=== PATIENT | female | born 1950 | race Caucasian/White ===

== ENCOUNTER 2017-04-08 08:46 | Inpatient (IN) | payer MEDICARE, OTHER ==
[~2017-04-08] VITALS: Ht 149.9 cm; Wt 71.8 kg
[2017-04-08] VITALS (13 sets, daily range): BP systolic 100–137; BP diastolic 45–89; PULSE 73–101; RESP 17–20; O2SAT 93–99
[~2017-04-08 08:46] MED LIST: ASPI-973 PO; ATOR20TA PO; Bupivacaine Liposome 1.3% 20 mL Inj INFILTRATE SCH; CALC600T12 PO; CHLO100T7 PO; CYA1000I IM; CeFAZolin Inj 2 GM in IV Premix 1 EACH IV SCH; DONE10TA42 PO; FOLI1TAB18 PO; FUR20 PO; MELA3TAB35 PO; MEMA10TA20 PO; MULT-1073 PO; NAPR500T PO; OMEP20TA86 PO; OXYB5TAB10 PO; VENL75TA3 PO
[2017-04-08] MEDS: Lactated Ringer's 1,000 ML IV SCH ×4 (09:38→14:11)
[2017-04-08] MEDS ORDERED: DOCU-41 PO (09:48)
[2017-04-08] MEDS ORDERED: CALC625T83 PO (09:48)
[2017-04-08] MEDS ORDERED: Vancomycin 1,000mg/200 mL NS IV ONE (10:23)
[2017-04-08] MEDS ORDERED: Lactated Ringer's 500 ML IV PRN (10:26)
[2017-04-08] MEDS ORDERED: Lactated Ringer's 1,000 ML IV SCH (10:26)
--- NOTE | 2017-04-08 10:26 | PCM.HPANE ---
Patient Data Date of Service: April 08, 2017 ([id number]) Surgeon Admitting Provider: Attending Provider:Errol Bennett MD Primary Care Physician:Cherelle Salinas MD Other Provider:Luis Fernando Owens Anesthesia Reason for Visit Right Knee Arthritis Ht/WT & BMI Height (Feet): 4 Height (Inches): 11 Weight (Kilograms): 70.3 Body Mass Index 31.00 Allergies Coded Allergies: metoclopramide (Verified Allergy, Severe, 07/08/10) povidone (Verified Allergy, Severe, Blisters, 09/10/09) povidone-iodine (Verified Allergy, Unknown, 04/07/17) soap (Verified Allergy, Unknown, 04/07/17) Past Anesthesia History Anesthesia History: Denies:: Abnormal Airway, Anesthesia Reactions, Difficult Intubation, Fam Anesthesia Reaction, Fam Malignant Hypertherm, Malignant Hyperthermia Diabetes History Hx Diabetes?: No MRSA MRSA: No Medications Blood Thinner: Aspirin Home Meds Incl Beta Toma: No Reported Medications Calcium Polycarbophil (Fiber-Caps)625 Mg Tablet1 Tablet PO DAILY 04/08/17 Docusate Sodium (Colace)100 Mg Fphzbcx885 Mg PO BID Ref 0 04/08/17 Chlorophyllin Copper Complex (Nullo)100 Mg Dwtzwt678 Mg PO DAILY 04/07/17 Memantine HCl 10 Mg Kbqyfg30 Mg PO BID 04/07/17 Melatonin 3 Mg Tablet3 Mg PO HS 04/07/17 Furosemide 20 Mg Tab20 Mg PO DAILY 30 Days Ref 0 04/07/17 Naproxen (Naprosyn)500 Mg Xfqqks900 Mg PO BID PRN For Pain Ref 0 03/27/16 Venlafaxine 75 Mg Mnxwea49 Mg PO QPM Ref 0 03/27/16 Venlafaxine 75 Mg Adawhs827 Mg PO QAM Ref 0 03/27/16 Oxybutynin Chloride 5 Mg Tablet5 Mg PO BID Ref 0 03/27/16 Omeprazole 20 Mg Tablet.dr20 Mg PO BID Ref 0 03/27/16 Folic Acid 1 Mg Tablet1 Mg PO DAILY 30 Days 03/27/16 Donepezil 10 Mg Tpvdcl87 Mg PO HS Ref 0 03/27/16 Cyanocobalamin (Cyanocobalamin Injection)1,000 Mcg/1 Ml Vial1,000 Mcg IM Monthly 03/27/16 Multivits-Min/FA/Lycopene/Lut (Centrum Silver Tablet)1 Each Tablet1 Each PO DAILY 03/27/16 Calcium Carbonate (Calcium)600 Mg Ljuwwu451 Mg PO BID 03/27/16 Atorvastatin (Lipitor)20 Mg Pxbyeh16 Mg PO DAILY Ref 0 03/27/16 Aspirin 81 Mg Rdvohd30 Mg PO DAILY Ref 0 03/27/16 Discontinued Reported Medications Nitrofurantoin Monohyd/M-Cryst (MacroBid)100 Mg Ywokpqz606 Mg PO HS Ref 0 03/27/16 History History of ENT Problems?: No HEENT History: Denies:: Abnormal Airway Difficult Intubation Dysphagia Hearing Problem Denture Type: Full- Upper Partial- Lower Teeth Condition: Missing Teeth Hx of Heart Problems?: No Cardiovascular History: Denies:: AICD Atrial Fibrillation Chest Pain Hypertension (hyperlipidemia) Pacemaker Valvular Heart Disease Hx of Respiratory Problem?: Yes Respiratory History: Positive for:: Pneumonia Denies:: Asthma COPD Chest Surgery Cough Dyspnea Emphysema Hemoptysis Oxygen Administration Tuberculosis Use of C-PAP Machine Hx Neurologic Problems?: Yes Neurological History: Positive for:: Alzheimer's Disease Denies:: CVA Dementia (early onset alzheimers) Dizziness Headaches Parkinson's Disease (tardive dyskinesia) Seizures Hx of GI Problems?: Yes Hx of Problems?: Yes Genitourinary History: Positive for:: Urinary Tract Infection (on prophylactic abx) Denies:: HX of Hemodialysis Kidney Stones HX of Peritoneal Dialysis: No Female Hx: Denies:: Currently Pelvic Inflammatory Problems with Breasts? Skin History: Denies:: History Skin Disorders? Pressure Ulcers Hx Musculoskeletal Problems?: Yes Musculoskeletal History: Positive for:: Back Injury Musculoskeletal Trauma (right knee current admission problem) Osteoarthritis Denies:: Joint Replacement Hx of Psycho/Social Problems?: Yes Psycho Social History: Positive for:: Anxiety Hx Depression Denies:: Bipolar Disorder Suicide Attempt Hx Surgeries?: Yes (lap naresh, tubal, shoulder, zach, bladder suspension, removal neurfibromato) Hx Any Other Health Problems?: Yes Other History: Positive for:: Hospitalization (pneumonia) Denies:: Cancer Endocrine Disease Thyroid Disease History Blood Transfusions: Positive for:: Blood Transfusions Denies:: Blood Transfuse Reaction Hx Diabetes: No Hx Alcohol Use: NoHx Substance Use: No Smoking Status: Former Smoker Have You Smoked inLast 12 mo: No Stop/Bang CRYSTAL Risk Assessment: Low Risk, <3 Yes Risk Assessment Category Category 1A: Patient has history of documented sleep apnea, and HAS NOT received any narcotic, sedative or anesthesia administration during this stay. Category 1B: Patient has history of documented sleep apnea, and HAS received any narcotic , sedative or anesthesia administration during this stay Category 2: Patient has SUSPECTED Obstructive Sleep Apnea, and HAS received any narcotic , sedative or anesthesia administration during this stay. Category 3: Patient has SUSPECTED Obstructive Sleep Apnea and HAS NOT received narcotic, sedative or anesthesia administration during this stay. Category 4: Outpatient in Procedural Areas with known sleep apnea or who screen positive for High Risk via the STOP/BANG questionnaire. Exam Exam Vital Signs Vital Signs Date Time Temp Pulse Resp B/P Pulse Ox O2 Delivery O2 Flow Rate FiO2 04/08/17 09:30 36.2 93 18 136/78 93 Room Air General Appearance: Alert, Oriented X3, Cooperative HEENT/AIRWAY: MP 1 Lungs: Clear to Auscultation Heart: Exam Unremarkable Meds/Labs/Diagnostics Admission Meds Current Medications Lactated Ringer's (Lr) 1,000 ml @ 120 mls/hr Q8H20M IV Last administered on t 09:38; Start 04/08/17 at 05:00; Stop 04/08/17 at 13:19 Plan Impression Patient chart reviewed, patient interviewed and anesthestic plan with risks, benefits, and alternatives discussed, and informed consent obtained. NPO per Anesth. Guidelines: Yes ASA Physical Status: ASA2 Mod Systemic Disease Anesthetic Plan: Regional Block, SAB Bene/Risks/Altern/Consents: Yes HP Complete Prior to Induction: Yes Fransisco Kidd MD April 08, 2017 10:26
[2017-04-08] MEDS ORDERED: HYDROmorphone 1 mg/mL Inj IVPUSH PRN (10:30)
[2017-04-08] MEDS ORDERED: fentaNYL-PF 50 mCg/mL 2 mL Inj IVPUSH PRN (10:30)
[2017-04-08] MEDS ORDERED: EPHEDrine Sulfate 50 mg/mL Inj IVPUSH PRN (10:30)
[2017-04-08] MEDS ORDERED: Ondansetron 2 mg/mL 2 mL Inj IVPUSH PRN (10:30)
[2017-04-08] MEDS ORDERED: Phenylephrine 10,000 mCg/mL Inj IVPUSH PRN (10:30)
[2017-04-08] MEDS ORDERED: Dexamethasone 4 mg/mL Inj IVPUSH PRN (10:30)
[2017-04-08] MEDS ORDERED: Gentamicin 40 mg/mL 2 mL Inj IRRIGATION ONE (11:36)
[2017-04-08] MEDS ORDERED: Bupivacaine Liposome 1.3% 20 mL Inj INFILTRATE ONE (11:50)
[2017-04-08] MEDS ORDERED: Bupivacaine-MPF 0.25%/EPI 30 mL Inj INFILTRATE ONE (11:50)
[2017-04-08] MEDS ORDERED: Lactated Ringer's 1,000 ML IV ONE (12:02)
--- NOTE | 2017-04-08 12:27 | PCM.ANEP1 ---
Post Anesthesia PACU Phase 1 Assessment Vital Signs 111/45, 76, 98%, 12, 36.2 Vital Signs Date Time Temp Pulse Resp B/P Pulse Ox O2 Delivery O2 Flow Rate FiO2 04/08/17 09:30 36.2 93 18 136/78 93 Room Air Anesthetic Administered: SAB Level of Alertness: Awake, talking REDMAN's with Equal Strength: No Pain: Yes Nausea or Vomiting: No CV Function & Hydration Stable: Yes Airway Device: NONE Oxygen Delivery: Room Air Lungs: Clear to Auscultation Dermatome Level: T10 (Umbilicus) Summary UNEVENTFUL SAB PACU Phase 2 Assessment Complications: No Follow up Care: No Patient Instructions Provided: N/A Fransisco Kidd MD April 08, 2017 12:27
--- NOTE | 2017-04-08 12:37 | OP ---
[address] [address] OPERATIVE REPORT PATIENT: AMY LUJAN : 1950 MR#: [id number] ADMIT: 04/08/2017 JOB ID: [id number] DATE OF SURGERY: 04/08/2017 PREOPERATIVE DIAGNOSIS(ES): Advanced osteoarthritis, right knee. POSTOPERATIVE DIAGNOSIS(ES): Advanced osteoarthritis, right knee. PROCEDURE: Total knee arthroplasty,right knee. SURGEON: Errol Bennett MD BRIDGE CARPENTER: Karmen Wynn PA-C (assistant toddler teacher required due to the complexity of the operation). INDICATIONS: This woman has severe arthritis, symptoms uncontrolled by conservative treatment. She and her elect for knee arthroplasty. They understand the potential for risks and complications, which include but is not limited to infection, thromboembolic, neurovascular events, as well as potential for progressive arthritis as well as potential for implant failure. PROCEDURE IN DETAIL: The patient was prepped and draped in usual sterile fashion. An anteromedial approach made to the knee. Dissection carried down. The patella was subluxed laterally, cut transversely, sized to a 32. Drill holes were made. Pin protected with patellar protection plate. Drill holes placed in distal femur. A 5 degree valgus distal femoral cut was made. The 5 sizing block was chosen after 3 degrees external rotation was dialed in. Chamfer cuts and subsequent drill holes were made for the 5. The tibia was cut with the extramedullary tool. Bone fragments and meniscal tissue were all removed. It was sized to a C, provisionally fixed. Pressurized lavage was followed by pressurized cementation of the components. Excess cement was removed during the curing process. Cut margins injected with Exparel and Marcaine mix. The wounds irrigated with sterile irrigant. Deep Hemovac drain. Closure with deep 2-0 Quill, followed by a 2-0 Vicryl, 3-0, and a 4-0 intracuticular stitch. Sterile dressings applied. The patient returned to the recovery room in stable condition. She tolerated the procedure well. There were no complications.
[2017-04-08] MEDS ORDERED: Ondansetron 2 mg/mL 2 mL Inj ONE (13:38)
[2017-04-08] MEDS ORDERED: Propofol 10,000 mCg/mL 20 mL Inj ONE (13:38)
[2017-04-08] MEDS ORDERED: Phenylephrine/NS-PF 100 mCg/mL 5 mL Syringe IVPUSH ONE (13:38)
[2017-04-08] MEDS ORDERED: fentaNYL-PF 50 mCg/mL 2 mL Inj ONE (13:38)
[2017-04-08] MEDS ORDERED: LORazepam 0.5 mg Tablet PO PRN (13:55)
[2017-04-08] MEDS ORDERED: Sodium Biphos-Phos 133 mL Enema RECTAL PRN (13:55)
[2017-04-08] MEDS ORDERED: Senna-Docusate 8.6-50 mg Tablet PO PRN (13:55)
[2017-04-08] MEDS ORDERED: diphenhydrAMINE 25 mg Capsule PO PRN (13:55)
[2017-04-08] MEDS ORDERED: Magnesium Hydroxide 10 mL Oral Concentration PO PRN (13:55)
[2017-04-08] MEDS ORDERED: Vancomycin Dose per Pharmacist XX SCH (13:55)
[2017-04-08] MEDS ORDERED: Ondansetron 2 mg/mL 2 mL Inj IV PRN (13:55)
[2017-04-08] MEDS ORDERED: Alum-Mag Hydrox-Simeth 30 mL Suspension PO PRN (13:55)
--- NOTE | 2017-04-08 14:05 | DRSVH ---
PROCEDURE: X-RAY RIGHT KNEE, ONE OR TWO VIEWS ([id number]) INDICATIONS: post total knee TECHNIQUE: 2 views of the knee acquired. COMPARISON: [facility], [place]ALIO, XR KNEE ARTHRITIC SERIES RT, 03/25/2017, 12:28. FINDINGS: Bones: Patient is status post knee joint arthroplasty. Hardware components are in expected position s. Visualized bony structures are intact. Soft tissues: Overlying postoperative changes are noted. IMPRESSION: 1. Expected postsurgical changes status post right knee arthroplasty. Dictated by: Obey Busch M.D. on 04/08/2017 at 13:03 Approved by: Obey Busch M.D. on 04/08/2017 at 13:03
--- NOTE | 2017-04-08 14:30 | NUR ---
Post op Transfer from PACU via bed at 14:00. Report received from Anastasi[facility]. Pt alert with baseline dementia and memory loss. RA. R knee with bulky ezequiel wrap CDI and hemovac clamped. Toes pink and warm with cap refill <3 sec.
[2017-04-08] MEDS ORDERED: hydrOXYzine Inj 50 MG/1 mL SDV IM PRN (14:35)
[2017-04-08 14:36] LABS: COLOR,URINE YELLOW (YELLOW)
[2017-04-08 14:37] LABS: APPEARANCE,URINE SLIGHTLY CLOUDY (CLEAR,HAZY); OCCULT BLOOD,URINE TRACE (NEGATIVE); UROBILINOGEN,URINE NORMAL (NORMAL)
[2017-04-08] MEDS: Sodium Chloride LOK Flush 10 mL Syringe IV SCH (15:30)
[2017-04-08] MEDS: Ketorolac 15 mg/mL Inj IV SCH ×2 (15:30→21:23)
[2017-04-08] MEDS: CeFAZolin Inj 2 GM in IV Premix 1 EACH IV SCH (18:02)
[2017-04-08] MEDS ORDERED: Vancomycin Inj 1,000 MG in IV Premix 1 EACH IV ONE (19:00)
[2017-04-08] MEDS: Senna-Docusate 8.6-50 mg Tablet PO SCH (21:22)
[2017-04-09 00:27] VITALS: BP 120/67; PULSE 91; RESP 16; O2SAT 96
[2017-04-09] MEDS: Sodium Chloride LOK Flush 10 mL Syringe IV SCH ×3 (00:30→16:10)
[2017-04-09] MEDS: Ketorolac 15 mg/mL Inj IV SCH (02:41)
[2017-04-09] MEDS: CeFAZolin Inj 2 GM in IV Premix 1 EACH IV SCH (03:35)
--- NOTE | 2017-04-09 03:40 | NUR ---
Insomnia This evening patient has been pleasant and has denied any pain. At HS 3mg of melatonin was given as scheduled. Around 0145 patient asked for something else to help her sleep. 5mg Ambien given. Upon further reassessment patient is sleeping and appears comfortable. Will continue to monitor, and continue Q1 hour checks.
[2017-04-09 05:52] LABS: BASOPHILS % (AUTO) 0.1 % (0-3); EOSINOPHILS % (AUTO) 0.1 % (0-5); MONOCYTES % (AUTO) 10.1 % (4-12); Mean Corpuscular Hemoglobin 26.1 pg (27.0-35.0); Mean Corpuscular Volume 78.3 fL (81-100); NEUTROPHILS % (AUTO) 76.3 % (40-74); Platelet Count 208 bil/L (150-400)
--- NOTE | 2017-04-09 06:01 | PCM.PNORTH ---
Subjective Date of Service: April 09, 2017 Visit Information: Reason for Visit Right Knee Arthritis Surgery/Surgery Date R TKA 04/08/17 Post-Op Day # Date of Admission: April 08, 2017 at 13:37 Hospital Day # Subjective Found patient awake and alert this morning and supine in bed and well positioned. No complaints of pain at this time. Discussed performing with physical therapy and patient states she is anxious to go home tomorrow on postop day 2. She does state that she has a home which can take care of her and I have encouraged her to get up and walk with therapy as much as possible. Postop General: No Complaints, No Shortness of Breath, No Chest Pain, Good Appetite Pain Management: PO Objective Exam Objective Alert and oriented 3 and pleasant. Interoperative dressing clean dry and intact. Toe wiggle and sensation are intact at right lower extremity distally Calf and thigh are soft and nontender Carter is present and working Hemovac drain is present and working Vital Signs and I/O Vital Sign - Last Date Time Temp Pulse Resp B/P Pulse Ox O2 Delivery O2 Flow Rate FiO2 04/09/17 00:27 36.8 91 16 120/67 96 Room Air Intake and Output 04/08/17 04/08/17 04/09/17 Cumulative From/Thru 15:00 23:00 07:00 04/07/17 09:51 - 04/08/17 18:51 Intake Total 1460 ml 482 ml 1942 ml Output Total 120 ml 325 ml 445 ml Balance 1340 ml 157 ml 1497 ml Intake Oral 300 ml 300 ml IV Total 1460 ml 182 ml 1642 ml Output Urine Total 100 ml 325 ml 425 ml Estimated Blood Loss 20 ml 20 ml Lab & Micro Results Laboratory Tests Test 04/08/17 13:53 04/09/17 05:00 Urine Color Yellow (YELLOW) Urine Appearance Slightly cloudy Urine pH 6.0 (5.0-8.0) Urine Specific [place] 1.010 (1.003-1.035) Urine Protein Tracemg/dL (NEG,TRACE) Urine Glucose (UA) Negativemg/dL (NEGATIVE) Urine Ketones Negativemg/dL (NEGATIVE) Urine Occult Blood Trace (NEGATIVE) Urine Nitrite Positive (NEGATIVE) Urine Bilirubin Negative (NEGATIVE) Urine Urobilinogen Normalmg/dL (NORMAL) Urine Leukocyte Esterase Large (NEGATIVE) Urine RBC 0-2/hpf (0-2) Urine WBC >50/hpf (0-5) Urine Epithelial Cells Occasional/hpf (NONE-MOD) Urine Crystals None seen (NONE SEEN) Urine Bacteria Many/hpf (NONE-FEW) Urine Hyaline Casts None/lpf (NONE) Urine Granular Casts None seen (NONE SEEN) Urine Waxy Casts None seen (NONE SEEN) Urine Red Blood Cell Casts None seen (NONE SEEN) Urine White Blood Cell Casts None seen (NONE SEEN) Urine Mucus None seen (None Seen) Urine Trichomonas None seen (NONE SEEN) Urine Yeast None (NONE SEEN) Urinalysis Comment None Urine Culture Reflexed Indicated Microbiology 04/08/17 Urine Culture, Received Pending General Appearance: Alert, Oriented X3, Cooperative, No Acute Distress Extremities: No Compartment Syndrom Noted, Thigh & Calf Soft/Nontender Postop Sensory Motor: Distal Motor Intact, Movement in Toes, Distal Sensation Intact SURGICAL WOUND : Drain Location Body Site: Knee Wound Drainage Type: Hemovac Activity: Activity per PT, Ambulate with PT (weightbearing as tolerated on the right lower extremity using front wheeled walker) Catheters: Urethral 2 Way Carter (discontinue Carter on postop day 1 after first PT session) Assessment & Plan Impression Patient is a 66-year-old female who has undergone a right total knee arthroplasty on 04/08/2017. She is very alert and energetic and anxious to discharge to home on postop day #2 with spouse as caregiver. Problems: Plan Postoperative day #1 from right total knee arthroplasty performed on 04/08/[address] Errol Bennett. Weightbearing as tolerated on the right lower extremity using front wheeled walker. Continue formal physical therapy for mobility, gait and safety. Continue by mouth pain medication only as needed and avoiding IV pain medication. Continue ASA 81 mg EC by mouth twice a day 6 weeks postop for DVT prophylaxis. Interoperative dressing will be changed on postop day #2. Discontinue Hemovac drain at 24 hours postop on postop day #1. Discontinue Carter catheter on postoperative day #1 after first PT session. Anticipate discharge to home with spouse as caregiver on postop day #2, 2016 VTE Prophylaxis: SCDs (SCD and left lower extremity), BG Hose (left lower extremity thigh high BG hose), Other (ASA 81 mg EC by mouth twice a day 6 weeks postoperative DVT prophylaxis. This should begin on postop day #1) Blane Pastor PA-C April 09, 2017 06:01
[2017-04-09 06:26] VITALS: BP_SYST 114; BP_SYST 148; BP_DIAS 62; BP_DIAS 87; PULSE 87; RESP 18; O2SAT 93
[2017-04-09 08:21] VITALS: BP 122/73; PULSE 72; RESP 20; O2SAT 97
[2017-04-09] MEDS: Pantoprazole 40 mg ER24 Tablet PO SCH ×2 (09:49→16:08)
[2017-04-09] MEDS: Senna-Docusate 8.6-50 mg Tablet PO SCH ×2 (09:49→20:59)
[2017-04-09] MEDS: Tolterodine ER 2 mg ER24 Capsule PO SCH (09:49)
[2017-04-09] MEDS: hydrOXYzine Pamoate 25 mg Capsule PO PRN ×4 (09:50→20:24)
[2017-04-09] MEDS: HYDROcodone-APAP 5-325 mg Tablet PO PRN ×2 (09:50→13:21)
[2017-04-09] MEDS: Lactated Ringer's 1,000 ML IV SCH ×2 (09:52→23:10)
[2017-04-09 13:03] VITALS: BP 119/64; PULSE 85; RESP 18; O2SAT 95
--- NOTE | 2017-04-09 14:03 | NUR ---
Social work note - Initial Assessment Valencia Coleman is a 66 yr old admitted for Rt knee arthritis. EMR reviewed: Pt has Medicare and [employer] insurance, Her PCP is Dr Salinas. no LTC insurance, No VA benefits. Readmit score is 3. See attached CM initial assessment. CLINICAL TECHNOLOGIST met with pt - introduced d/c planning and explained SW role. Pt states she plans to go home with her - denies any needs. CLINICAL TECHNOLOGIST spoke with pt's Raul. Pt has advancing dementia. She has limited short term memory and her stays with her for in home care. He states that he worries that she will be resistant to rehabbing her knee - she forgets and can become argumentative. feels equipped to care for pt after d/c. He has no preference whether Pt goes to outpt PT or has Home Health. He has family in the area - daughter works for [employer]. CLINICAL TECHNOLOGIST encouraged future planning - provided Senior resources guide and encouraged them to look at [facility] for adult day programming if helpful. Assessment: Pt with mild but advancing dementia who would benefit from PT after Knee replacement. Plan: home with in POV - Will await recommendations for Home Health vs Outpt PT. REGI Mason Addendum: 04/09/17 at 1410 by KEKE VIVAR SS Amended: Links added.
[2017-04-09] MEDS: oxyCODONE-Acetamin 5-325 mg Tablet PO PRN ×3 (16:09→20:58)
--- NOTE | 2017-04-09 16:15 | NUR ---
Evaluation completed. Please go to "Notes" then click on "Assessments and Notes" (bottom left corner of screen). Then select appropriate discipline tab on top of screen.
--- NOTE | 2017-04-09 19:15 | NUR ---
Pain/Hemovac/Godinez Pt started on PO pain medications; started with Ponder, post two doses, pt requesting pain medications just prior to the 3 hour bryson. Pt switched to Percocet 5-325 with 25mg Vistaril, effective. Pt working with PT this afternoon and per PT, tubing had gotten caught and disconnected from drain. Drain and tubing removed. Gauze and tegaderm in place. Pt godinez dc'd and pt voiding within 2 hours of removal. No issues. Able to call for BR. Call light in reach.
[2017-04-09 21:18] VITALS: BP 135/75; PULSE 70; RESP 18; O2SAT 96
[2017-04-10] MEDS: oxyCODONE-Acetamin 5-325 mg Tablet PO PRN ×5 (02:17→19:51)
[2017-04-10] MEDS: Sodium Chloride LOK Flush 10 mL Syringe IV SCH ×3 (02:18→15:18)
[2017-04-10 04:42] VITALS: BP 142/74; PULSE 91; RESP 18; O2SAT 93
--- NOTE | 2017-04-10 05:47 | NUR ---
Pain/Ambulation Patient needs frequent reminders for proper transfers and ambulation. Has difficult time ambulating to restroom and repositioning in bed. Tolerating pain medications well denies nausea, cp, sob, and abdominal discomfort. Spontaneously voiding as Carter d/c on previous shift. Bed in low position, call light within reach, and intentional rounding and toileting.
[2017-04-10] MEDS: hydrOXYzine Pamoate 25 mg Capsule PO PRN ×4 (06:43→19:50)
[2017-04-10] MEDS: Tolterodine ER 2 mg ER24 Capsule PO SCH (08:06)
[2017-04-10] MEDS: Senna-Docusate 8.6-50 mg Tablet PO SCH ×2 (08:06→21:20)
[2017-04-10] MEDS: Pantoprazole 40 mg ER24 Tablet PO SCH ×2 (08:06→17:00)
[2017-04-10] MEDS: Lactated Ringer's 1,000 ML IV SCH (10:49)
--- NOTE | 2017-04-10 11:23 | PCM.PNORTH ---
Subjective Date of Service: April 10, 2017 Visit Information: Reason for Visit Right Knee Arthritis Surgery/Surgery Date R TKA 04/08/17 Post-Op Day # Date of Admission: April 08, 2017 at 13:37 Hospital Day # Subjective Patient is POD#1 right total knee arthroplasty. She states she is not having any pain. She denies numbness or tingling. She states she has been up with physical therapy. Family at bedside state she did ambulate with physical therapy however she was very unsteady. Per therapy's note, it appears patient is not stable with her ambulation and is a fall risk. Postop General: No Complaints, No Shortness of Breath, No Chest Pain, Good Appetite Pain Management: PO Objective Exam Objective Patient laying in bed. Vital Signs and I/O Vital Sign - Last Date Time Temp Pulse Resp B/P Pulse Ox O2 Delivery O2 Flow Rate FiO2 04/10/17 04:42 36.7 91 18 142/74 93 Room Air Intake and Output 04/09/17 04/09/17 04/10/17 Cumulative From/Thru 14:59 22:59 06:59 04/07/17 09:51 - 04/10/17 06:44 Intake Total 2424 ml 400 ml 6505 ml Output Total 1440 ml 2555 ml Balance 984 ml 400 ml 3950 ml Intake Oral 990 ml 400 ml 2600 ml IV Total 1434 ml 3905 ml Output Urine Total 1300 ml 2245 ml Drainage Total 140 ml 290 ml Estimated Blood Loss 20 ml # Voids 2 2 # Bowel Movements 0 0 Lab & Micro Results Microbiology 04/08/17 Urine Culture - Final, Complete Escherichia Coli Result Diagram: 04/09/17 0500 General Appearance: Alert, Cooperative, No Acute Distress Extremities: Distal Pulses Palpable, No Compartment Syndrom Noted, Tenderness/ Swelling Noted Postop Sensory Motor: Distal Motor Intact, Movement in Toes, Distal Sensation Intact, NVI Distally SURGICAL WOUND : Wound Location/Description Dressing clean, dry and intact. Will be changed tomorrow. Drain Location Body Site: Knee Incision General Appearance: No Direct Observation Wound Drainage Type: Hemovac Activity: Activity per PT, Ambulate with PT (weightbearing as tolerated on the right lower extremity using front wheeled walker) Assessment & Plan Impression POD#2 right TKA Problems: Plan Patient states she is not having any pain however she does flinch with movement and appears uncomfortable at times during the exam. She seems unable to express why she is uncomfortable. At times, she seems disoriented and confused. She often loses her train of thought. This is definitely a change in baseline from when I saw her in the office. Patient is ambulating with PT, but is unstable and unsteady. This combined with her disorientation makes her a fall risk and at this time, I would say she is unsafe to return home without shelter assistance. Weightbearing: Weightbearing as tolerated with a walker DVT prophylaxis: Aspirin 81 mg twice a day 6 weeks Physical therapy for transfers, progressive ambulation, strengthening Wound care: Perioperative dressing will be changed to an island dressing today. Change as needed. Analgesia: Oral pain medications - prefer a reduction in narcotics as patient has a history of dementia. Tylenol is preferred over Percocet. Discharge plan: Discharge SNF in 1-2 days. Follow-up plan: In 2 weeks at [facility] with PA for wound check and at [address] Bennett with x-rays VTE Prophylaxis: SCDs (SCD and left lower extremity), BG Hose (left lower extremity thigh high BG hose), Other (ASA 81 mg EC by mouth twice a day 6 weeks postoperative DVT prophylaxis. This should begin on postop day #1) Karmen Wynn PA-C April 10, 2017 11:23
--- NOTE | 2017-04-10 12:12 | NUR ---
Social Work Note Continued: D&A: Reviewed chart. Spoke with ortho CARMEN/Karmen who reports that she will be recommending a short SNF stay for this pt. at time of d/c. SNF referral placed by Karmen. Reviewed notes from medical team recommending SNF. Met with pt. and spouse/Brett # [phone] explained role. Both pt. and spouse agreeable to short SNF stay. Medicare SNF choice list presented and first choice is [facility]. REMOTE ADVISOR placed call to Isaura with admit at [facility] requesting that they review for potential admission. Access provided. CARMEN/Karmen reports that pt. most likely with will be medically cleared for d/c to SNF tomorrow 04-11-17. PASRR signed by CARMEN for exempted hospital discharge secondary to her Alzheimer's. P: [facility] evaluating for potential acceptance when pt. is medically stable. Follow closely. HERMINIO Rosales
[2017-04-10 15:25] VITALS: BP 130/72; PULSE 93; RESP 20; O2SAT 96
--- NOTE | 2017-04-10 16:32 | NUR ---
Social Work Note: D&A: Received return phone call from Isaura at [facility]. Pt. has been accepted when medically stable. Accepting MD is Dr. Oconnell. Met with pt. and spouse to confirm plan. Pt. aware and agreeable to short SNF stay at [facility]. Per Isaura, they will set up transport when pt. discharged. Faxed PASRR to [facility]. Otto and [facility] R[facility]ER signed for hospital exempt status secondary to Alzheimer's, and stable depression/anxiety. In addition to the above, pt. signed important letter from Medicare at approximately 3:50pm. P: [facility] when medically stable. HERMINIO Rosales
--- NOTE | 2017-04-10 18:57 | NUR ---
Dressing/Pain Pt c/o pain and requesting pain medications ~3hours as they become available; icing intermittently. Pt up to BR which is a process as pt is easily distracted and requires cueing and refocusing. In afternoon, pain still present but seeming less painful as not requesting pain medication every 3hours. Dressing to right knee taken down, incision CDI with steri-strips. Silverlon dressing wettened with NS and island dressing applied. Care continues.
[2017-04-10 21:00] VITALS: BP 126/72; PULSE 87; RESP 20; O2SAT 95
[2017-04-11] MEDS: Sodium Chloride LOK Flush 10 mL Syringe IV SCH ×2 (00:26→08:04)
[2017-04-11] MEDS: oxyCODONE-Acetamin 5-325 mg Tablet PO PRN ×3 (00:27→13:38)
--- NOTE | 2017-04-11 02:25 | NUR ---
Activity Patient Ambulates with FWW and one person assist. Has difficult time with this task as forget full of proper use of walker. Frequent cueing frustrates patient and this leads to negative statements. Responded to negative statements with encouragement and praise. will continue plan of care and intentional rounding.
[2017-04-11 06:02] VITALS: BP 128/78; PULSE 80; RESP 16; O2SAT 96
[2017-04-11] MEDS: hydrOXYzine Pamoate 25 mg Capsule PO PRN ×2 (08:03→13:38)
[2017-04-11] MEDS: Pantoprazole 40 mg ER24 Tablet PO SCH (08:03)
[2017-04-11] MEDS: Tolterodine ER 2 mg ER24 Capsule PO SCH (08:03)
[2017-04-11] MEDS: Lactated Ringer's 1,000 ML IV SCH (08:04)
[2017-04-11] MEDS: Senna-Docusate 8.6-50 mg Tablet PO SCH (08:04)
--- NOTE | 2017-04-11 09:27 | PCM.PNORTH ---
Subjective Date of Service: April 11, 2017 Visit Information: Reason for Visit Right Knee Arthritis Surgery/Surgery Date R TKA 04/08/17 Post-Op Day # 3 Date of Admission: April 08, 2017 at 13:37 Hospital Day # Subjective Patient is unable to tell me if she is having pain and states she has not had pain at all since surgery. She states she "cannot remember" if she had discomfort with PT. She seems more confused today than yesterday. Son states she has been working with physical therapy but states it has been a "challenge" because she needs frequent breaks and constant cueing and is unstable at times. Postop General: No Complaints, No Shortness of Breath, No Chest Pain, Good Appetite Pain Management: PO Objective Exam Objective Sitting up in chair Vital Signs and I/O Vital Sign - Last Date Time Temp Pulse Resp B/P Pulse Ox O2 Delivery O2 Flow Rate FiO2 04/11/17 06:02 37.0 80 16 128/78 96 Room Air Intake and Output 04/10/17 04/10/17 04/11/17 Cumulative From/Thru 15:00 23:00 07:00 04/07/17 09:51 - 04/11/17 06:02 Intake Total 800 ml 375 ml 7680 ml Output Total 250 ml 2805 ml Balance 800 ml 125 ml 4875 ml Intake Oral 800 ml 375 ml 3775 ml IV Total 3905 ml Output Urine Total 250 ml 2495 ml Drainage Total 290 ml Estimated Blood Loss 20 ml # Voids 4 2 8 # Bowel Movements 0 0 Lab & Micro Results Microbiology 04/08/17 Urine Culture - Final, Complete Escherichia Coli Result Diagram: 04/09/17 0500 General Appearance: Alert, Oriented X3, Cooperative, No Acute Distress Extremities: Distal Pulses Palpable (faint but dorsalis pedis is palpable), No Compartment Syndrom Noted, Thigh & Calf Soft/Nontender, Tenderness/Swelling Noted Postop Sensory Motor: Distal Motor Intact, Movement in Toes, Distal Sensation Intact, NVI Distally SURGICAL WOUND : Wound Location/Description Island dressing in place with silver dressing under. Drain Location Body Site: Knee Incision General Appearance: No Direct Observation Activity: Activity per PT, Ambulate with PT (weightbearing as tolerated on the right lower extremity using front wheeled walker) Assessment & Plan Impression POD#3 right TKA Problems: Plan Patient states she is not having any pain however she does flinch with movement and appears uncomfortable at times during the exam. She seems unable to express why she is uncomfortable. At times, she seems disoriented and confused. She often loses her train of thought. This is definitely a change in baseline from when I saw her in the office. Patient is ambulating with PT, but is unstable and unsteady. This combined with her disorientation makes her a fall risk and at this time, I would say she is unsafe to return home without group home assistance. Weightbearing: Weightbearing as tolerated with a walker DVT prophylaxis: Aspirin 81 mg twice a day 6 weeks Physical therapy for transfers, progressive ambulation, strengthening Wound care: Island dressing intact. Place BG compression stockings on over the island before discharge. Analgesia: Oral pain medications - prefer a reduction in narcotics as patient has a history of dementia. Tylenol is preferred over Percocet. Discharge plan: Discharge to [facility]. Follow-up plan: In 2 weeks at [facility] with CARMEN for wound check and at [address] Bennett with x-rays VTE Prophylaxis: SCDs (SCD and left lower extremity), BG Hose (left lower extremity thigh high BG hose), Other (ASA 81 mg EC by mouth twice a day 6 weeks postoperative DVT prophylaxis. This should begin on postop day #1) Karmen Wynn PA-C April 11, 2017 09:27
--- NOTE | 2017-04-11 09:30 | PCM.DIORTH ---
Ortho Discharge Instruction Date of Service: April 11, 2017 Dates of Hospitalization Date of Hospital Admission April 08, 2017 at 13:37 Providers Admitting Physician: Errol Bennett MD Primary Care Physician: Cherelle Salinas MD Attending Physician: Errol Bennett MD Diet Discharge Diet: No restrictions Activity Discharge Activity-General: Be up and about, Ice incision 3-5 time/day for 20min Right Lower Extremity: Weight Bearing as tolerated Discharge Assist Device: Front Wheeled Walker Dressing and Incisional Care Discharge Dressing Care: Keep dressing clean, dry & intact Discharge Hygiene: May shower (with dressing covered) Additional Instructions Discharge Instructions Weightbearing: Weightbearing as tolerated with a walker DVT prophylaxis: Aspirin 81 mg twice a day 6 weeks Physical therapy for transfers, progressive ambulation, strengthening and grai training. Wound care: Keep incision covered to avoid compression stockings rubbing on incision and causing irritation. Wear compression stockings at all times during the day. Shower instructions: May shower but do not get dressing over incision wet. Cover with plastic bag or saran wrap. Analgesia: Prescription for Percocet given however Tylenol is preferable when it can be substituted. Follow-up plan: In 2 weeks at [facility] with CARMEN for wound check and at [address] Bennett with x-rays Karmen Wynn PA-C April 11, 2017 09:30
[2017-04-11] MEDS ORDERED: OXYC1TAB24 PO (09:31)
[2017-04-11] MEDS ORDERED: ASPI81TA3 PO (09:31)
[2017-04-11] MEDS ORDERED: HYDR-3797 PO (09:31)
--- NOTE | 2017-04-11 09:43 | PCM.DC.ORT ---
Discharge Summary Date of Service: April 11, 2017 Date of Hospital Admission: April 08, 2017 at 13:37 Date of Surgery: April 08, 2017 Date of Discharge: April 11, 2017 Reason for Hospitalization: Right knee osteoarthritis Procedures Performed: Right total knee arthroplasty Hospital Course: The patient was admitted to the hospital on 04/08/2017 and underwent the above procedure. Antibiotic prophylaxis consisting of Ancef and vancomycin. The surgeon was Dr. Bennett. A Carter was placed perioperatively. Patient tolerated the procedure well and was transferred to recovery room in stable condition. Carter was discontinued on postop day 1. Patient had physical therapy to work on ambulation and transfers. Weightbearing as tolerated with walker. Pain was managed with Dilaudid, Percocet, Vistaril, Toradol. DVT prophylaxis: Aspirin 81mg BID and SCDs. Hospital course was complicated by dementia and unstable gait. Patient was able to perform adequately enough to be discharged to a long-term facility on postop day 3. Follow-up: at [facility] 2 weeks postop for wound check and at [address] Bennett with x-ray. Diagnosis at Time of Discharge Status post right total knee arthroplasty Problems: Disposition: Stable, discharged to long-term facility Additional Information Weightbearing: Weightbearing as tolerated with a walker DVT prophylaxis: Aspirin 81 mg twice a day 6 weeks Physical therapy for transfers, progressive ambulation, strengthening and grai training. Wound care: Keep incision covered to avoid compression stockings rubbing on incision and causing irritation. Wear compression stockings at all times during the day. Shower instructions: May shower but do not get dressing over incision wet. Cover with plastic bag or saran wrap. Analgesia: Prescription for Percocet given however Tylenol is preferable when it can be substituted. Follow-up plan: In 2 weeks at [facility] with PA for wound check and at [address] Bennett with x-rays Aspirin Chew (Aspirin Chew) 81 Mg Chew 81 MG PO BID Atorvastatin (Lipitor) 20 Mg Tablet 20 MG PO DAILY Calcium Carbonate (Calcium) 600 Mg Tablet 600 MG PO BID Calcium Polycarbophil (Fiber-Caps) 625 Mg Tablet 1 TABLET PO DAILY Chlorophyllin Copper Complex (Nullo) 100 Mg Tablet 100 MG PO DAILY Cyanocobalamin (Cyanocobalamin Injection) 1,000 Mcg/1 Ml Vial 1,000 MCG IM Monthly Docusate Sodium (Colace) 100 Mg Capsule 100 MG PO BID Donepezil (Donepezil) 10 Mg Tablet 10 MG PO HS Folic Acid (Folic Acid) 1 Mg Tablet 1 MG PO DAILY Furosemide (Furosemide) 20 Mg Tab 20 MG PO DAILY Hydroxyzine Pamoate (HydrOXYzine Pamoate) 25 Mg Capsule 0 MG PO Q4H PRN PRN For Restlessness Melatonin (Melatonin) 3 Mg Tablet 3 MG PO HS Memantine HCl (Memantine HCl) 10 Mg Tablet 10 MG PO BID Multivits-Min/FA/Lycopene/Lut (Centrum Silver Tablet) 1 Each Tablet 1 EACH PO DAILY Naproxen (Naprosyn) 500 Mg Tablet 500 MG PO BID PRN PRN For Pain Omeprazole (Omeprazole) 20 Mg Tablet.dr 20 MG PO BID Oxybutynin Chloride (Oxybutynin Chloride) 5 Mg Tablet 5 MG PO BID Venlafaxine (Venlafaxine) 75 Mg Tablet 150 MG PO QAM Venlafaxine (Venlafaxine) 75 Mg Tablet 75 MG PO QPM oxyCODONE-Acetaminophen 5-325 mg (oxyCODONE-Acetaminophen 5-325 mg) 1 Each Tablet 1-2 TAB PO Q6H PRN PRN For Severe Pain Karmen Wynn PA-C April 11, 2017 09:43
--- NOTE | 2017-04-11 10:32 | NUR ---
Social Work: Readiness for Discharge D: EMR reviewed. Pt is on day 3 of hospitalization. SW confirmed that pt will discharge today. SW confirmed discharge orders match initial SW consult for SNF placement. SW confirmed with [facility] that pt will be transported today at 1430. SW met with pt and spouse at bedside and confirmed pt will be transported by [facility] today at 1430. Pt and spouse are agreeable to discharge plan. SW will continue to follow. A: Pt for whom a SNF has been deemed medically necessary. P: Pt will discharge to [facility] today at 1430 via [facility]. Pt and family updated on transport time and agreeable. Transport packet (including hard Rx, face sheet, body sheet, discharge instructions/summary) completed and placed at RN station for pick-up. SW will continue to follow. HERMINIO Zaragoza
--- NOTE | 2017-04-11 12:39 | NUR ---
Social Work: Discharge D: EMR reviewed. Pt is on day 3 of hospitalization. SW met with pt and spouse at bedside and confirmed pt will be transported to [facility] by [facility] today at 1430. Pt and spouse are agreeable to discharge plan. SW will continue to follow. A: Pt for whom a SNF has been deemed medically necessary. P: Pt will discharge to [facility] today at 1430 via [facility]. Pt and family updated on transport time and agreeable. Transport packet (including hard Rx, face sheet, body sheet, discharge instructions/summary) completed and placed at RN station for pick-up. SW will continue to follow. HERMINIO Zaragoza
[2017-04-11 12:40] VITALS: BP 119/74; PULSE 79; RESP 18; O2SAT 98
--- NOTE | 2017-04-11 14:12 | NUR ---
Discharge Pt discharged to [facility] at 1400; left via w/c with [facility] [employer] services. All personal belongings taken home with family prior to pt d/c and will be meeting pt there at facility with belongings. Dressing CDI. Martin Hose in place. IV dc'd intact. Pt to BR and wearing new brief. No questions/concerns - aware of rehab plan. Addendum: 04/11/17 at 1904 by NEYMAR BERNAL RN Report given to Lakeisha
== END 2017-04-11 14:05 | DRG 470 ==
LOC: SAS 08:46 → OSC 13:37
PROVIDERS: ADMIT Orthopaedic Surgery; ATTEND Orthopaedic Surgery
PROC: 0SRC0J9 Replacement of Right Knee Joint with Synthetic Substitute, Cemented, Open Approach (ICD-10-PCS; principal; 2017-04-08 11:15)
DX: M17.11 Unilateral primary osteoarthritis, right knee (principal); G30.0 Alzheimer's disease with early onset; F02.80 Dementia in other diseases classified elsewhere, unspecified severity, without behavioral disturbance, psychotic disturbance, mood disturbance, and anxiety